=== PATIENT | female | born 1985 | race Caucasian/White ===

== ENCOUNTER 2016-09-25 18:38 | Emergency (ER) | payer SELFPAY ==
[~2016-09-25] VITALS: Ht 157.4 cm; Wt 68.0 kg
[2016-09-25] MEDS ORDERED: HYDROCODONE BIT1 T11 PO (20:30)
[2016-09-25] MEDS ORDERED: CEPHALEXIN500 M1 PO (20:30)
== END 2016-09-25 23:00 | disposition home or self-care (01) ==
LOC: ED 18:38
DX: S50.12XA Contusion of left forearm, initial encounter (principal); S50.312A Abrasion of left elbow, initial encounter; Z23 Encounter for immunization; Z88.6 Allergy status to analgesic agent; F17.200 Nicotine dependence, unspecified, uncomplicated; V86.99XA Unspecified occupant of other special all-terrain or other off-road motor vehicle injured in nontraffic accident, initial encounter; Y93.89 Activity, other specified; Y92.413 State road as the place of occurrence of the external cause; Y99.9 Unspecified external cause status

== ENCOUNTER 2016-10-03 17:55 | Emergency (ER) | payer SELFPAY ==
[~2016-10-03] VITALS: Ht 157.4 cm; Wt 68.0 kg
[~2016-10-03 17:55] MED LIST: CEPHALEXIN500 M1 PO; HYDROCODONE BIT1 T11 PO
[2016-10-03] MEDS ORDERED: ULTRAM50 MG PO (18:10)
== END 2016-10-04 00:49 | disposition home or self-care (01) ==
LOC: ED 17:55
DX: Z48.00 Encounter for change or removal of nonsurgical wound dressing (principal); F17.200 Nicotine dependence, unspecified, uncomplicated; Z88.6 Allergy status to analgesic agent